=== PATIENT | female | born 1950 | race Two or more races ===

== ENCOUNTER 2018-10-15 07:05 | Day surgery (SDC) | payer OTHER ==
[2018-10-14 16:52] VITALS: Ht 147.3 cm; Wt 67.6 kg
[~2018-10-15] VITALS: Ht 147.3 cm; Wt 67.6 kg
[2018-10-15] VITALS (28 sets, daily range): BP systolic 95–158; BP diastolic 57–73; PULSE 56–64; RESP 13–22
[2018-10-15] MEDS ORDERED: DORZ10DR6 BOTH EYES (07:54)
[2018-10-15] MEDS ORDERED: LOSA100T15 PO (07:54)
[2018-10-15] MEDS ORDERED: ALP2OP10 BOTH EYES (07:54)
[2018-10-15] MEDS ORDERED: PROP30DR BOTH EYES (07:54)
[2018-10-15] MEDS ORDERED: LATA2.5D2 RIGHT EYE (07:54)
[2018-10-15] MEDS ORDERED: METF-849 PO (07:54)
[2018-10-15] MEDS ORDERED: BROM3DRO OP (07:54)
[2018-10-15] MEDS ORDERED: LOVA10TA63 PO (07:54)
[2018-10-15] MEDS ORDERED: LIDOCAINE 1% (MDV) 20 ML INJ ONE (08:51)
[2018-10-15] MEDS ORDERED: HEPARIN 1000 UNITS/ML 10 ML INJ ONE (08:51)
[2018-10-15] MEDS ORDERED: IODIXANOL LOCM 100 ML BTL ONE (08:51)
[2018-10-15] MEDS ORDERED: NITROGLYCERIN (IC) 100 MCG/ML INJ ONE (08:52)
[2018-10-15] MEDS ORDERED: MIDAZOLAM 1 MG/ML 2 ML INJ ONE (08:52)
[2018-10-15] MEDS ORDERED: VERAPAMIL 5 MG INJ ONE (08:52)
[2018-10-15] MEDS ORDERED: FENTAnyl 50 MCG/ML VIAL ONE (08:52)
[2018-10-15] MEDS ORDERED: SOD CHLORIDE 0.9% 1,000 ML IV SCH (09:50)
--- NOTE | 2018-10-15 09:59 | OPR ---
Date/Time of Note Date/Time of Note DATE: 10/15/18 TIME: 09:53 Operative Report Procedure Date: Oct 15, 2018 Preoperative Diagnosis Chest pain Coronary artery disease Postoperative Diagnosis Chest pain Coronary artery disease Operation/Procedure Performed Left heart catheterization Surgeon see signature line Mobile Phlebotomist none Anesthesia Type: moderate sedation Estimated Blood Loss: minimal Transfusion none Specimen none Grafts/Implants none Complications none Pt Condition Post Procedure: stable Disposition: PACU Procedure Description DESCRIPTION OF PROCEDURE: The patient placed on kitchen utility associate, pulse oximetry and supplemental oxygen as necessary. The right wrist was prepped and draped in a sterile fashion and infiltrated with 1% lidocaine. Via the [place] tech nique, the right radial artery was accessed. A 5-[place] sheath was inserted and through this the right coronary catheter and left coronary catheter were inserted into the coronary arteries. Placement confirmed by fluoroscopy and hemodynamics. CATHETERIZATION FINDINGS: 1. Left main: No significant disease. 2. LAD: Large caliber vessel with mid 40% plaque 3. Circumflex: Medium caliber vessel with ostial 30% plaque 4. Obtuse marginal: Medium caliber vessel with no significant disease. 5. RCA: Large dominant vessel with no significant disease COMPLICATIONS: None. FINAL RESULTS: Non-obstructive coronary atherosclerosis involving mid LAD and ostial circumflex as above RECOMMENDATIONS: 1. [place] aggressive medical therapy with aspirin, statin, DM control 2. Discharge home SANGEETA DURHAM Oct 15, 2018 09:59
--- NOTE | 2018-10-15 15:11 | RADRPT ---
Vent Rate: 61 bpm RR Interval: 0 msec MD Interval: 170 msec QRS Duration: 84 msec QT Interval: 418 msec QTC Interval: 420 msec P-R-T [place]: 16 - 4 - -21 degrees Normal sinus rhythm T wave abnormality, consider inferior ischemia Abnormal ECG Electronically Signed By: Oscar Lepe
== END 2018-10-15 12:33 | disposition home or self-care (01) ==
LOC: SDS 07:05
PROVIDERS: ATTEND Internal Medicine
DX: I25.10 Atherosclerotic heart disease of native coronary artery without angina pectoris (principal)
CPT/HCPCS: 80048; 82962; 85025; 85610; 93005; 93454; C1887; J1644; J2250; J3010; Q9967; Z7610